=== PATIENT | female | born 1990 | race African-American/Black ===

== ENCOUNTER 2018-05-05 02:41 | Emergency (ER) | payer SELFPAY ==
[2018-05-05] MEDS ORDERED: DICYCLOMINE HCL INJ 20 MG/2 ML AMPULE IM ONE (03:31)
[2018-05-05] MEDS ORDERED: NORMAL SALINE 1000 ML 1,000 ML IV ONE (03:31)
[2018-05-05 04:59] LABS: ABSOLUTE EOSINOPHILS # (AUTO) 0.3 10^3/uL (0.0-0.6); ABSOLUTE MONOCYTES (AUTO) 0.8 10^3/uL (0.1-1.4); ABSOLUTE NEUT (AUTO) 5.9 10^3/uL (1.7-8.2); BASOPHILS % (AUTO) 0.5 % (0-2); EOSINOPHILS % (AUTO) 2.7 % (0-6); HEMATOCRIT 37.4 % (36.0-47.0); HEMOGLOBIN 12.6 g/dL (12.0-15.5); MEAN CORPUSCULAR HEMOGLOBIN 30.3 pg (27.0-33.4); MEAN CORPUSCULAR HGB CONC 33.8 g/dL (32.0-36.0); MEAN CORPUSCULAR VOLUME 90 fl (80-97); MONOCYTES % (AUTO) 7.8 % (3-13); PLATELET COUNT 334 10^3/uL (150-450); RED BLOOD COUNT 4.17 10^6/uL (3.72-5.28); RED CELL DISTRIBUTION WIDTH 14.1 % (11.5-14.0); TOTAL CELLS COUNTED % (AUTO) 100 %; WHITE BLOOD COUNT 10.1 10^3/uL (4.0-10.5)
[2018-05-05 05:23] LABS: ANION GAP 13 (5-19); BLOOD UREA NITROGEN 10 mg/dL (7-20); CALCIUM 9.4 mg/dL (8.4-10.2); CARBON DIOXIDE 23 mmol/L (22-30); CHLORIDE 106 mmol/L (98-107); GLUCOSE 99 mg/dL (75-110); POTASSIUM 4.2 mmol/L (3.6-5.0)
[2018-05-05] MEDS ORDERED: DICYCLOMINE HCL 10 MG CAPSULE PO ONE (06:02)
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
--- NOTE | 2018-05-05 06:14 | RADIOLOGY REPORT (SQ) ---
EXAM DESCRIPTION: XR ABDOMEN SUPINE AND ERECT WITH CHEST (ABD ACUTE SERIES) COMPLETED DATE/TME: 05/05/2018 03:30 CLINICAL HISTORY: 28 years, Female, abdominal pain COMPARISON: None. NUMBER OF VIEWS: 4 TECHNIQUE: Upright chest with supine and erect views of the abdomen LIMITATIONS: None. FINDINGS: Heart size is normal. Lungs are clear. No pneumothorax. No free air under the hemidiaphragms. Nonspecific, nonobstructive bowel gas pattern. Abundant stool in the colon. No free air. Well-defined ossific/bony protuberance extending from the right ilium. This may relate to osteochondroma. IMPRESSION: Negative chest. Abundant stool in the colon. copyright 2010 [employer]- All Rights Reserved
[2018-05-05 06:37] VITALS: BP 136/69
== END 2018-05-05 06:46 | disposition home or self-care (01) ==
LOC: ER 02:41
DX: R10.84 Generalized abdominal pain (principal); R19.7 Diarrhea, unspecified; Z90.49 Acquired absence of other specified parts of digestive tract
CPT/HCPCS: 99284; 96360; 36415; 84703; 85025; 80048; 74022; J3490; J7030

== ENCOUNTER 2018-08-11 00:36 | Emergency (ER) | payer MEDICAID ==
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
--- NOTE | 2018-08-11 04:26 | RADIOLOGY REPORT (SQ) ---
EXAM DESCRIPTION: XR CHEST 2 VIEWS COMPLETED DATE/TME: 08/11/2018 03:12 CLINICAL HISTORY: 28 years, Female, chest pain COMPARISON: None. NUMBER OF VIEWS: 2 TECHNIQUE: 2 view chest LIMITATIONS: None. FINDINGS: Heart size normal. Lungs are clear. No pneumothorax IMPRESSION: Negative chest copyright 2010 [employer]- All Rights Reserved
[2018-08-11 05:11] VITALS: BP 138/89
--- NOTE | 2018-08-11 12:35 | EKG REPORT ---
SEVERITY:- NORMAL ECG - SINUS RHYTHM : Confirmed by: Brooke Garza MD 11-Aug-2018 12:35:08
== END 2018-08-11 05:12 | disposition home or self-care (01) ==
LOC: ER 00:36
DX: R07.9 Chest pain, unspecified (principal)
CPT/HCPCS: 71046; 93005; 93010; 99283

== ENCOUNTER 2018-10-20 08:30 | Emergency (ER) | payer OTHER, MEDICAID ==
[2018-10-20] MEDS ORDERED: KETOROLAC TROMETHAMINE 60 MG/2 ML SDV IM ONE (09:30)
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
[2018-10-20 11:20] VITALS: BP 132/72
== END 2018-10-20 11:05 | disposition home or self-care (01) ==
LOC: ER 08:30
DX: S16.1XXA Strain of muscle, fascia and tendon at neck level, initial encounter (principal); M54.2 Cervicalgia; V48.5XXA Car driver injured in noncollision transport accident in traffic accident, initial encounter; Y93.89 Activity, other specified
CPT/HCPCS: 99283; 96372; 72125; J1885